=== PATIENT | male | born 1970 | race Caucasian/White ===

== ENCOUNTER 2016-08-21 13:12 | Emergency (ER) | payer SELFPAY ==
[~2016-08-21] VITALS: Ht 162.6 cm; Wt 72.7 kg
[~2016-08-21 13:12] MED LIST: ACET1TAB19 PO; [UNRECOGNIZED DRUG - CODE] MC
[2016-08-21 13:19] VITALS: BP 214/133; PULSE 72; RESP 20; O2SAT 100
[2016-08-21 14:41] VITALS: BP 175/106; PULSE 73; O2SAT 100
--- NOTE | 2016-08-21 14:41 | ED.REPORT ---
HPI-General Illness Date of Service Aug 21, 2016 ED Provider: Ruslan Lorenzo MD Pt is a 46 y.o. male with a hx of SIDDIQUI who presents to the ED c/o left eye pain onset 1 week ago. Pt states that the left eye pain began after using meth last week. He reports associated intermittent left eye vision changes (difficulty seeing at night), and limited depth perception with his left eye. He denies fever, nausea, vomiting, and diarrhea. Pt is falling asleep during his examination so he provides a limited history. Nursing Notes Stated Complaint: SUBSTANCE ABUSE, UNABLE TO SEE OUT OF LEFT EYE Chief Complaint: Eye Nursing Notes Reviewed: Yes Allergies: Coded Allergies: No Known Allergies (Unverified Allergy, Unknown, 10/20/14) Scheduled PRN Acetaminophen/Caffeine (Excedrin Tension Headache Cplt) 1 Each Tablet 1-2 EACH PO Q4 PRN PRN headcahe Miscellaneous Medications Aspirin (Acetyl Salicylic Acid) 2,500 Gm Powder 0 MC General Time Seen by MD: 14:40 Chief Complaint Other (Eye pain, left) Hx Obtained From: Patient Unable to Obtain Hx: Patient condition Arrived By: Walk-in Sudden in Onset?: Yes Onset Occurred: 1 week ago Context of Onset: Amphetamine use Symptom Duration: Intermittent Location: : Eye left Quality: Painful Severity: Current: Mild Past Medical History Past Medical History hx of SIDDIQUI Patient reports negative prior workup for coronary disease with a negative stress test in [place] last year Past Surgical History none reported Family History heart disease, [place], aneurysm Smoking History Never Smoker Social History Alcohol Use: Denies alcohol use Drug Use: Meth Ambulatory Status Independent Review of Systems Unable to Obtain ROS Patient condition Full Review of Systems Constitutional: Denies: Fever Eyes: Reports: Eye pain left GI: Denies: Diarrhea, Nausea, Vomiting Neurologic: Reports: Vision change (at night, left eye) Complete sys rev & neg: except as marked. Physical Exam Vital Signs Vital Signs Date Time Temp Pulse Resp B/P Pulse Ox O2 Delivery O2 Flow Rate FiO2 08/21/16 14:41 73 175/106 100 Room Air 08/21/16 13:19 36.2 72 20 214/133 100 Room Air Initial VS: Reviewed Abdomen / GI: No distention Extremities: Vascular intact, Neuro intact Skin: Warm, Dry, No cyanosis Neurologic: Oriented, Nonfocal General/Constitutional: No acute distress, Well developed, Well hydrated, Well nourished, Not toxic appearing Alertness: Positive: Responds to verb stimuli Pt is falling asleep during his examination and is able to provide a limited hx. Head / Eyes: Atraumatic, Normocephalic, PERRL, EOMI Respiratory / Chest: Atraumatic, Breath sounds NL, No respiratory distress Cardiovascular: Heart rate NL, Regular rhythm, Peripheral circulation NL Hypertensive Re-Eval/Medical Decision Source of Hx: Old records Counseled Regarding: Diagnosis, Lab results, Need for follow-up, When/why to return to ED Discharge & Departure Shift Change Sign-Out Patient Care Transferred: Yes (Dr. Persaud) Discussed Complaint(s): Yes Laboratory Evaluation: Ordered, not yet done Imaging Studies: Ordered, not yet done Primary Impression: Vision changes Referrals: NOPCP (PCP) Care Transferred to: Dr. Persaud Care Transferred at: 15:00 [place] Attestation Portions of this note were transcribed by Cindy Tapia. I, Dr. Lorenzo personally performed the history, physical exam and medical decision-making; I reviewed and confirmed the accuracy of the information in the transcribed note. Signed by: Shantel Washington, 08/21/16 and 1502. Rusaln Lorenzo MD Aug 21, 2016 14:41 CINDY TAPIA Aug 21, 2016 14:48
[2016-08-21] MEDS ORDERED: 0.9% Sodium Chloride 1,000 ML IV ONE (15:00)
--- NOTE | 2016-08-21 15:32 | DRSVH ---
PROCEDURE: CT BRAIN WITHOUT CONTRAST ([id number]) INDICATIONS: Acute altered level of consciousness TECHNIQUE: Noncontrast 4.5 mm thick angled axial sections acquired from the foramen magnum to the vertex, with c oronal reformats. COMPARISON: None. FINDINGS: Image quality: Excellent. CSF spaces: Basal cisterns are patent. No extra-axial fluid collections. Ventricles are normal in size and shape. Brain: No midline shift. No intracranial masses or hemorrhage. Chambers-white matter interface is norm al. Skull and face: Calvarium and visualized facial bones are intact, without suspicious lesions. Sinuses: Severe mucosal thickening noted in the visualized right maxillary sinus. The mastoids are cl ear. IMPRESSION: 1. No acute intracranial disease process. 2. Severe right maxillary sinus mucosal thickening. Please correlate with clinical data. Dictated by: Kayla Cline MD, PhD on 08/21/2016 at 15:27 Approved by: Kayla Cline MD, PhD on 08/21/2016 at 15:30
--- NOTE | 2016-08-21 15:52 | DRSVH ---
PROCEDURE: X-RAY CHEST ONE VIEW, PORTABLE ([id number]) INDICATIONS: altered LOC TECHNIQUE: One view of the chest was acquired. COMPARISON: [facility], CR, XR CHEST 2V AP/PA AND LAT, 04/18/2016, 9:44 PM. FINDINGS: Surgical changes and devices: None. Lungs and pleura: No pleural effusions or pneumothorax. Lungs are clear. Mediastinum: Mediastinal contours appear normal. Heart size is normal. Bones and chest wall: No suspicious bony lesions. Overlying soft tissues appear unremarkable. IMPRESSION: No acute process. Dictated by: Elías Pittman M.D. on 08/21/2016 at 15:50 Approved by: Elías Pittman M.D. on 08/21/2016 at 15:51
[2016-08-21 16:20] LABS: BASOPHILS % (AUTO) 0.3 % (0-3); EOSINOPHILS % (AUTO) 3.4 % (0-5); MONOCYTES % (AUTO) 8.1 % (4-12); Mean Corpuscular Hemoglobin 26.8 pg (27.0-35.0); Mean Corpuscular Volume 80.7 fL (81-100); NEUTROPHILS % (AUTO) 74.9 % (40-74); Platelet Count 260 bil/L (150-400)
[2016-08-21 16:46] LABS: Magnesium 2.2 mg/dL (1.6-2.6); TROPONIN T < 0.010 ug/L (0.0-0.011)
[2016-08-21] MEDS ORDERED: LISI-567 PO (17:08)
[2016-08-21 17:16] VITALS: BP 179/119; PULSE 82; RESP 22; O2SAT 100
== END 2016-08-21 17:15 | disposition home or self-care (01) ==
LOC: SED 13:12
DX: H53.9 Unspecified visual disturbance (principal); I10 Essential (primary) hypertension; F15.20 Other stimulant dependence, uncomplicated
CPT/HCPCS: 36415; 70450; 71010; 80053; 83735; 84484; 85025; 93005; 96360; 99285; G0480; J7030